=== PATIENT | female | born 1980 | race Caucasian/White ===

== ENCOUNTER → 2019-10-17 10:22 | Outpatient (CLI) | payer OTHER, SELFPAY ==
[2019-10-17 12:30] LABS: Absolute Lymphocyte Count 2.26 X10^3/uL (0.83-4.51); Absolute Neutrophil Count 4.1 X10^3/uL (2.0-7.7); Basophil# 0.05 X10^3/uL; Basophil% 0.7 % (0-1); Eosinophil# 0.16 X10^3/uL; Eosinophils% 2.2 % (0-5); Hematocrit 43.7 % (37-47); Hemoglobin 14.7 g/dL (12.0-15.0); Lymphocyte # 2.26 X10^3/ul (4.0); Lymphocyte % 31.7 % (19-41); Mean Corp Hgb Conc 33.6 g/dL (32-36); Mean Corpuscular Hgb 29.8 pg (27.0-32.0); Mean Corpuscular Volume 88.6 fL (81-99); Mean Platelet Vol. 11.6 fl (6.2-12.0); Monocyte% 8.4 % (0-10); NRBC Flagged by Analyzer 0 % (0-5); Neutrophil # 4.05 X10^3/uL (2.7-7.7); Neutrophil % 56.7 % (47-70); Platelet Count 254 K/mm3 (150-450); RBC Distribution Width CV 12.1 % (11.6-14.6); RBC Distribution Width SD 39.2 fl (35.1-43.9); Red Blood Count 4.93 M/mm3 (4.2-5.4); White Blood Count 7.1 K/mm3 (4.4-11.0)
[2019-10-17 12:49] LABS: ALB/GLOB Ratio 1.3 RATIO (0.9-2.4); AST(SGOT) 8 U/L (15-37); Alanine Aminotransfer ALT/SGPT 18 U/L (13-56); Albumin, Serum 4.2 g/dL (3.2-5.0); Alkaline Phosphatase 44 U/L (45-117); Anion Gap 6 (5-15); BUN 8 mg/dL (7-18); BUN/Creat Ratio 8.2 RATIO (10-20); Chloride 108 mmol/L (98-107); Cholesterol 128 mg/dL (200); Creatinine, Serum 0.98 mg/dL (0.55-1.02); EST Glomerular Filtration Rate 67 mL/min (>60); Est Glom Filt Rate - Afr Amer 82 mL/min (>60); Globulin 3.2 g/dL (2.2-4.2); Glucose 94 mg/dL (74-106); High Density Lipoprotein 77 mg/dL; Protein, Total 7.4 g/dL (6.4-8.2); Sodium Level 139 mmol/L (136-145); Triglycerides 43 mg/dL; Very Low Density Lipoprotein 9 mg/dL (5-40)
== END ==
PROVIDERS: PCP Family Medicine; Referring Provider Family Medicine; Visit Provider Family Medicine
DX: Z00.00 Encounter for general adult medical examination without abnormal findings (principal); F32.9 Major depressive disorder, single episode, unspecified
CPT/HCPCS: 36415; 80053; 80061; 84443; 85025

== ENCOUNTER → 2020-07-23 17:24 | Outpatient (CLI) | payer OTHER, SELFPAY | PROVIDERS: PCP Family Medicine; Referring Provider Family Medicine; Visit Provider Family Medicine | DX: Z20.828 Contact with and (suspected) exposure to other viral communicable diseases (principal) | CPT/HCPCS: 87635; C9803; U0005; U0003 ==

== ENCOUNTER → 2022-04-09 | Outpatient (CLI) | payer OTHER, SELFPAY ==
[2022-04-09 14:11] LABS: Absolute Lymphocyte Count 1.79 X10^3/uL (0.83-4.51); Absolute Neutrophil Count 5.8 X10^3/uL (2.0-7.7); Basophil# 0.05 X10^3/uL; Basophil% 0.6 % (0-1); Eosinophil# 0.22 X10^3/uL; Eosinophils% 2.5 % (0-5); Hematocrit 44.3 % (37-47); Hemoglobin 15.3 g/dL (12.0-15.0); Lymphocyte # 1.79 X10^3/ul (0.83-4.51); Lymphocyte % 20.2 % (19-41); Mean Corp Hgb Conc 34.5 g/dL (32-36); Mean Corpuscular Hgb 31.8 pg (27.0-32.0); Mean Corpuscular Volume 92.1 fL (81-99); Mean Platelet Vol. 11.8 fl (6.2-12.0); Monocyte# 0.99 X10^3/uL; Monocyte% 11.2 % (0-10); NRBC Flagged by Analyzer 0 % (0-5); Neutrophil % 65.3 % (47-70); Platelet Count 233 K/mm3 (150-450); RBC Distribution Width CV 12.5 % (11.6-14.6); RBC Distribution Width SD 42.5 fl (35.1-43.9); Red Blood Count 4.81 M/mm3 (4.2-5.4); White Blood Count 8.9 K/mm3 (4.4-11.0)
[2022-04-09 14:27] LABS: ALB/GLOB Ratio 1.3 RATIO (0.9-2.4); AST(SGOT) 7 U/L (15-37); Alanine Aminotransfer ALT/SGPT 15 U/L (13-56); Alkaline Phosphatase 43 U/L (45-117); Anion Gap 6 (5-15); BUN 11 mg/dL (7-18); BUN/Creat Ratio 12.9 RATIO (10-20); Calcium,Total 8.8 mg/dL (8.5-10.1); Chloride 107 mmol/L (98-107); Cholesterol 141 mg/dL (200); Creatinine, Serum 0.85 mg/dL (0.55-1.02); EST Glomerular Filtration Rate 78 mL/min (>60); Est Glom Filt Rate - Afr Amer 95 mL/min (>60); Globulin 3.1 g/dL (2.2-4.2); Glucose 83 mg/dL (74-106); High Density Lipoprotein 82 mg/dL; Protein, Total 7.1 g/dL (6.4-8.2); Sodium Level 140 mmol/L (136-145); Triglycerides 68 mg/dL; Very Low Density Lipoprotein 14 mg/dL (5-40)
== END | disposition home or self-care (01) ==
PROVIDERS: PCP Family Medicine; Visit Provider Family Medicine
DX: Z00.00 Encounter for general adult medical examination without abnormal findings (principal); R55 Syncope and collapse; F32.9 Major depressive disorder, single episode, unspecified
CPT/HCPCS: 36415; 80053; 80061; 85025

== ENCOUNTER → 2022-04-22 | Outpatient (CLI) | payer OTHER, SELFPAY ==
--- NOTE | 2022-04-22 10:53 | ECHOD_ITS ---
Reason For Study: Syncope Procedure This was a 2D Doppler, Color Flow transthoracic echocardiogram. The exam was of adequate technical quality. Exam performed in department. Left Ventricle Normal LV size. Left ventricular systolic function is normal. The estimated ejection fraction is 60 %. No evidence for diastolic dysfunction. No regional wall motion abnormalities noted. Right Ventricle Normal RV size. Normal systolic function. Atria Normal left atrium. Normal right atrium. No doppler evidence for ASD. Mitral Valve There is no mitral annular calcification. Normal mitral valve. Trivial mitral valve insufficiency. Tricuspid Valve Normal tricuspid valve. Mild tricuspid valve insufficiency. Right ventricular systolic pressure estimated to be 17 mmHg. Aortic Valve Trisinus/trileaflet aortic valve. Normal aortic valve. Pulmonic Valve The pulmonic valve is not well visualized. Trivial pulmonic valve insufficiency. Great Vessels Normal sized aortic root. Pericardium/Pleural No pericardial effusion. MMode/2D Measurements & Calculations LVIDd: 4.6 cm IVSd: 0.69 cm Ao root diam: 2.9 cm LVIDs: 3.0 cm LVPWd: 0.84 cm RVDd: 2.9 cm FS: 35.5 % LAV(MOD-bp): 31.5 ml LA A4 area: 12.8 cm2 LA dimension(2D): 3.2 cm LAV(MOD-bp) Indexed: 19.4 ml/m2 LAV(MOD-sp2): 33.1 ml LAV(MOD-sp4): 28.1 ml RA A4 area: 13.3 cm2 Doppler Measurements & Calculations MV E max jason: 67.7 cm/sec Lat Peak E' Jason: 11.9 cm/sec Med Peak E' Jason: 9.2 cm/sec MV A max jason: 47.1 cm/sec E/E' lat: 5.7 E/E' med: 7.3 MV E/A: 1.4 Ao V2 max: 112.2 cm/sec LV V1 max: 78.8 cm/sec PA V2 max: 71.9 cm/sec Ao max P.0 mmHg LV V1 max P.5 mmHg Ao V2 mean: 80.1 cm/sec Ao mean P.8 mmHg Ao V2 VTI: 24.5 cm TR max jason: 189.2 cm/sec TR max P.3 mmHg ECHO/Echo Complete Interpretation Summary Left ventricular systolic function is normal. The estimated ejection fraction is 60 %. Trivial mitral valve insufficiency. Mild tricuspid valve insufficiency. Trivial pulmonic valve insufficiency. Right ventricular systolic pressure estimated to be 17 mmHg. No evidence for diastolic dysfunction. Comment: Based upon the 2D echocardiographic and color-flow Doppler images obta ined and obvious VSD is not appreciated at this time. Ordering Physician: Alessia Jefferson Referring Physician: Alessia Jefferson Performed By: Corie Siddiqui, RDCS, RVT
== END | disposition home or self-care (01) ==
LOC: CVS 10:52
PROVIDERS: PCP Family Medicine; Referring Provider Family Medicine; Visit Provider Family Medicine
DX: R55 Syncope and collapse (principal); Z87.74 Personal history of (corrected) congenital malformations of heart and circulatory system
CPT/HCPCS: 93306

== ENCOUNTER 2022-08-17 16:21 | Emergency (ER) | payer OTHER, SELFPAY ==
[2022-08-17 16:26] VITALS: BP 124/87; PULSE 79; RESP 16; TEMP 36.6; O2SAT 98; BMI 22.2
== END 2022-08-17 17:25 | disposition left against medical advice (07) ==
LOC: ED 19:09
PROVIDERS: PCP Family Medicine
DX: Z53.21 Procedure and treatment not carried out due to patient leaving prior to being seen by health care provider (principal)

== ENCOUNTER → 2022-11-26 | Outpatient (CLI) | payer OTHER, SELFPAY ==
[2022-11-26 12:39] LABS: Erythrocyte Sedimentation Rate < 1 mm/hr (0-30)
[2022-11-26 12:50] LABS: Vitamin B12 349 pg/mL (211-911)
[2022-11-26 12:51] LABS: Homocysteine 8.3 umol/L (3.2-10.7)
[2022-11-26 13:34] LABS: ALB/GLOB Ratio 1.2 RATIO (0.9-2.4); AST(SGOT) 7 U/L (15-37); Alanine Aminotransfer ALT/SGPT 17 U/L (13-56); Albumin, Serum 3.9 g/dL (3.2-5.0); Alkaline Phosphatase 37 U/L (45-117); Anion Gap 8 (5-15); BUN 13 mg/dL (7-18); BUN/Creat Ratio 14.3 RATIO (10-20); Calcium,Total 8.9 mg/dL (8.5-10.1); Chloride 106 mmol/L (98-107); Creatinine, Serum 0.91 mg/dL (0.55-1.02); EST Glomerular Filtration Rate 72 mL/min (>60); Est Glom Filt Rate - Afr Amer 87 mL/min (>60); Globulin 3.3 g/dL (2.2-4.2); Glucose 73 mg/dL (74-106); Potassium 4.1 mmol/L (3.5-5.1); Protein, Total 7.2 g/dL (6.4-8.2); Sodium Level 137 mmol/L (136-145); Thyroid Stim Hormone (TSH) 2.35 uIU/mL (0.358-3.74)
[2022-11-26 17:11] LABS: CRP, High Sensitivity Cardiac < 0.16 mg/L
[2022-12-01 16:09] LABS: Methylmalonic Acid Bld 111 nmol/L (0-378)
[2022-12-02 06:09] LABS: Arsenic 7245 2 ug/L (0-9); Lead, Blood < 1.0 ug/dL (0.0-3.4); Mercury, Blood 85324 3.7 ug/L (0.0-14.9)
== END | disposition home or self-care (01) ==
LOC: MTLAB 10:39
PROVIDERS: PCP Family Medicine; Referring Provider Psychiatry & Neurology Neurology; Visit Provider Psychiatry & Neurology Neurology
DX: R41.89 Other symptoms and signs involving cognitive functions and awareness (principal); M31.6 Other giant cell arteritis; F03.90 Unspecified dementia, unspecified severity, without behavioral disturbance, psychotic disturbance, mood disturbance, and anxiety; E03.8 Other specified hypothyroidism; H53.2 Diplopia; E53.8 Deficiency of other specified B group vitamins; E78.49 Other hyperlipidemia; G62.9 Polyneuropathy, unspecified; I67.2 Cerebral atherosclerosis; I70.91 Generalized atherosclerosis; R41.3 Other amnesia
CPT/HCPCS: 36415; 80053; 82175; 82607; 82746; 83090; 83655; 83825; 83921; 84443; 85652; 86141

== ENCOUNTER → 2022-11-30 | Outpatient (CLI) | payer OTHER, SELFPAY ==
--- NOTE | 2022-11-30 12:48 | MRI_ITS ---
EXAM: MR HEAD WITHOUT AND WITH INTRAVENOUS CONTRAST CLINICAL INDICATION: BRAIN STEM LESION L EYE PAIN , R EYE TURNING INWARDS TECHNIQUE: Multiplanar and multisequence MR images of the brain were obtained without and with intravenous contrast. Magnetic field strength 1.5 T. CONTRAST: 12 cc of Clariscan IV. COMPARISON: No relevant prior studies available. FINDINGS: BRAIN AND EXTRA-AXIAL SPACES: Unremarkable. No intra- or extra-axial hemorrhage. No evidence of acute infarct. No intracranial mass or mass effect. There is preservation of the vaughn/white matter interface. Posterior fossa structures are unremarkable. Ventricles are appropriate for age. No hydrocephalus. Basal cisterns are patent. SELLA: Unremarkable. Normal sella turcica, pituitary gland, infundibular stalk, optic chiasm and hypothalamus. AUDITORY SYSTEM: Unremarkable. The internal auditory canals are patent. BONES/JOINTS: Unremarkable. No discrete lytic or blastic abnormalities. SINUSES: Unremarkable as visualized. Clear. MASTOID AIR CELLS: Unremarkable as visualized. Clear. ORBITS: Unremarkable as visualized. Both globes, extraocular muscles, optic nerves and retrobulbar fat appear unremarkable. VASCULATURE: Unremarkable as visualized. Normal flow voids in the major intracranial circulation. MRI/Brain W/WO Contrast IMPRESSION: Negative MRI brain without and with intravenous contrast. Electronically Signed: Clemente Jo MD at 0:46 EDT ,
== END | disposition home or self-care (01) ==
LOC: MRI 12:35
PROVIDERS: PCP Family Medicine; Referring Provider Ophthalmology; Visit Provider Ophthalmology
DX: G93.9 Disorder of brain, unspecified (principal)
CPT/HCPCS: 70553; A9575

== ENCOUNTER → 2024-02-01 | Outpatient (CLI) | payer OTHER, SELFPAY ==
[2024-02-01 17:27] LABS: Internal QC Validated? YES +Cl - CLEAR BKGD; Pregnancy, Urine Negative Negative
== END | disposition home or self-care (01) ==
LOC: MTLAB 15:26
PROVIDERS: PCP Family Medicine; Referring Provider Dermatology; Visit Provider Dermatology
DX: L70.0 Acne vulgaris (principal); L90.5 Scar conditions and fibrosis of skin; L71.8 Other rosacea; L71.0 Perioral dermatitis; L73.8 Other specified follicular disorders
CPT/HCPCS: 81025

== ENCOUNTER → 2024-03-07 | Outpatient (CLI) | payer OTHER, SELFPAY ==
[2024-03-07 15:45] LABS: Internal QC Validated? YES +Cl - CLEAR BKGD; Pregnancy, Urine Negative Negative
== END | disposition home or self-care (01) ==
LOC: MTLAB 12:41
PROVIDERS: PCP Family Medicine; Referring Provider Dermatology; Visit Provider Dermatology
DX: L70.0 Acne vulgaris (principal); L90.5 Scar conditions and fibrosis of skin; L71.8 Other rosacea; L71.0 Perioral dermatitis; L73.8 Other specified follicular disorders
CPT/HCPCS: 81025

== ENCOUNTER → 2024-04-10 | Outpatient (CLI) | payer OTHER, SELFPAY ==
[2024-04-10 17:54] LABS: Internal QC Validated? YES +Cl - CLEAR BKGD; Pregnancy, Urine Negative Negative
== END | disposition home or self-care (01) ==
PROVIDERS: PCP Family Medicine; Referring Provider Dermatology; Visit Provider Dermatology
DX: Z79.899 Other long term (current) drug therapy (principal)
CPT/HCPCS: 81025

== ENCOUNTER → 2024-04-12 | Outpatient (CLI) | payer OTHER, SELFPAY ==
[2024-04-12 18:08] LABS: Absolute Lymphocyte Count 2.06 X10^3/uL (0.83-4.51); Absolute Neutrophil Count 5.6 X10^3/uL (2.0-7.7); Basophil# 0.06 X10^3/uL; Basophil% 0.7 % (0-1); Eosinophil# 0.21 X10^3/uL; Eosinophils% 2.5 % (0-5); Hematocrit 44.9 % (37-47); Hemoglobin 15.2 g/dL (12.0-15.0); Lymphocyte # 2.06 X10^3/ul (0.83-4.51); Mean Corp Hgb Conc 33.9 g/dL (32-36); Mean Corpuscular Hgb 30.5 pg (27.0-32.0); Mean Platelet Vol. 10.8 fl (6.2-12.0); Monocyte# 0.66 X10^3/uL; Monocyte% 7.7 % (0-10); NRBC Flagged by Analyzer 0 % (0-5); Neutrophil # 5.56 X10^3/uL (2.7-7.7); Neutrophil % 64.9 % (47-70); Platelet Count 258 K/mm3 (150-450); RBC Distribution Width SD 39.7 fl (35.1-43.9); Red Blood Count 4.99 M/mm3 (4.2-5.4); White Blood Count 8.6 K/mm3 (4.4-11.0)
[2024-04-12 18:49] LABS: Ferritin 93 ng/mL (8-252); Iron 132 ug/dL (50-170); Iron Binding Capacity,Total 340 ug/dL (250-450); PERCENT IRON SATURATION 38.8 % (15.0-55.0); T4 Free Direct 0.93 ng/dL (0.76-1.46)
[2024-04-13 02:02] LABS: Vitamin B12 462 pg/mL (211-911); Vitamin D,25 Hydroxy 43.2 ng/mL
[2024-04-17 10:08] LABS: Anti-Nuclear Antibody Test Negative (.); Vitamin D 1,25-Dihydroxy 56.8 pg/mL (24.8-81.5)
[2024-04-22 18:07] LABS: Androstenedione 162 ng/dL (41-262); Sex Hormone-binding Globulin 57.1 nmol/L (24.6-122.0); Testosterone, % Free 2.41 % (0.50-2.80); Testosterone, Free 0.82 ng/dL (0.10-0.85); Testosterone, Total 34 ng/dL (4-50); Zinc, Plasma or Serum 70 ug/dL (44-115)
== END | disposition home or self-care (01) ==
PROVIDERS: PCP Family Medicine; Referring Provider Dermatology; Visit Provider Dermatology
DX: L70.0 Acne vulgaris (principal); L90.5 Scar conditions and fibrosis of skin; K13.0 Diseases of lips; L65.9 Nonscarring hair loss, unspecified; Z79.899 Other long term (current) drug therapy
CPT/HCPCS: 36415; 82157; 82306; 82607; 82627; 82652; 82728; 82746; 83540; 83550; 84270; 84402; 84403; 84439; 84443; 84630; 85025; 86038; 82626

== ENCOUNTER → 2025-04-27 | Outpatient (CLI) | payer OTHER, SELFPAY ==
[2025-04-27 19:28] LABS: Staph aureus DNA By PCR NEGATIVE (Negative)
== END | disposition home or self-care (01) ==
PROVIDERS: PCP Family Medicine; Referring Provider Ophthalmology; Visit Provider Ophthalmology
DX: H00.032 Abscess of right lower eyelid (principal)
CPT/HCPCS: 87070; 87077; 87205; 87640